=== PATIENT | male | born 1960 | race Caucasian/White ===

== ENCOUNTER 2023-07-17 11:22 | Outpatient (CLI) | payer BC, SELFPAY ==
[2023-07-17 11:52] VITALS: BMI 38.2
--- NOTE | 2023-07-17 11:52 | ECG_ITS ---
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
[2023-07-17 12:34] VITALS: BP 150/91; PULSE 102
== END 2023-07-17 11:23 | disposition home or self-care (01) ==
PROVIDERS: PCP Family Medicine; Visit Provider Family Medicine
DX: R55 Syncope and collapse (principal); R94.39 Abnormal result of other cardiovascular function study
CPT/HCPCS: 93017